=== PATIENT | female | born 1960 | race Caucasian/White ===

== ENCOUNTER → 2016-12-07 | Outpatient (CLI) | payer OTHER ==
[~2016-12-07] MED LIST: AZIT250T6 PO; BUDE10.2 IH; BUPR150T8 PO; CLON1TAB PO; CONTRAST GIVEN MC PRN; DEXT15CA18 PO; ESTR0.5T PO; HYDR50TA6 PO; IOHEXOL 300 MG/ML 100ML VIAL. IV ONE; LOSA25TA4 PO; METF500T9 PO; METH-38 PO; MIRT45TA PO; MONT10TA9 PO; NAPR500T PO; POTA20TA4 PO; PRED-220 PO; SIMV40TA3 PO; VENTOLIN HFA18 GM INH
--- NOTE | 2016-12-07 12:22 | KCIC ---
CT CHEST PQRS STATEMENT One or more of the following individualized dose reduction techniques were utilized for this study:1.Automated exposure control. 2.Adjustment of the mA and/or kV according to patient size. 3.Use of iterative reconstruction technique Indication: Reason For Study Reason: PERSISTENT COUGH, SOA / Spl. Instructions: 95cc Omni 300 / History: Increased use of asthma medication Comparison: None Technique: Multiple contiguous axial images were obtained through the chest after administration of iodinated contrast. Coronal and sagittal reformations were created. Findings: There is no thoracic adenopathy. There is a left breast mass that measures 2.9 x 1.7 centimeters. This appeared to be present on a previous mammogram from 2012. The heart size is normal. There is no pericardial effusion. The thoracic aorta is normal in caliber. There is no infiltrate. There is a 5 millimeter nodule in the right lower lobe. This is seen on series 6, image 33. There is no pleural effusion. No pneumothorax. No destructive osseus lesion. Limited subdiaphragmatic evaluation demonstrates cholelithiasis. Impression: - No evidence for pneumonia. - 5 millimeter nodule in the right lower lobe. Followup in 12 months is recommended. - Cholelithiasis. Electronically signed by: Girma Love (Dec 07, 2016 12:20:27)
== END | disposition home or self-care (01) ==
LOC: KCIC CT 10:38
PROVIDERS: ATTEND Family Medicine
DX: G47.33 Obstructive sleep apnea (adult) (pediatric) (principal); K80.20 Calculus of gallbladder without cholecystitis without obstruction; R91.1 Solitary pulmonary nodule; J45.909 Unspecified asthma, uncomplicated; N63 Unspecified lump in breast
CPT/HCPCS: 71260; 82565; Q9967

== ENCOUNTER → 2017-09-14 | Outpatient (CLI) | payer OTHER ==
[~2017-09-14] MED LIST changes: -CONTRAST GIVEN MC PRN; -IOHEXOL 300 MG/ML 100ML VIAL. IV ONE
--- NOTE | 2017-09-15 14:14 | RAD ---
DATE: 09/14/2017 EXAM: DIGITAL SCREEN BILAT W/CAD HISTORY: Routine COMPARISON: Examination 10/30/2011 and MLO and exaggerated CC views of both breasts to 01/03/2013. No more recent examination is available . This study was interpreted with the benefit of Computerized Aided Detection (CAD). FINDINGS: Breast Density: SCATTERED The breast parenchyma shows scattered fibroglandular densities. Breast parenchyma level B. The right breast is unremarkable. There are 2 masses in the left breast. A biopsy clip is adjacent to one of the masses. The smaller, oval, mass is unchanged in size. The rectangular mass immediately adjacent to the smaller mass is slightly larger. Given the very slow growth in this more rectangular mass a benign etiology is strongly favored over any malignant process. Targeted ultrasound however to this slowly growing mass is advised IMPRESSION: Slowly growing rectangular mass left breast. Targeted ultrasound advised BI-RADS CATEGORY: 0 INCOMPLETE: NEED ADDITIONAL IMAGING EVAULATION AND/OR PRIOR MAMMOGRAMS FOR COMPARISON RECOMMENDED FOLLOW-UP: ADD ADDITIONAL IMAGING PQRS compliance statement: Patient information was entered into a reminder system with a target due date soon for the next mammogram. Mammography is a sensitive method for finding small breast cancers, but it does not detect them all and is not a substitute for careful clinical examination. A negative mammogram does not negate a clinically suspicious finding and should not result in delay in biopsying a clinically suspicious abnormality. "Our facility is accredited by the [employer] Mammography Program."
== END | disposition home or self-care (01) ==
LOC: MAMMO 14:21
PROVIDERS: ATTEND Family Medicine
DX: N63.20 Unspecified lump in the left breast, unspecified quadrant (principal)
CPT/HCPCS: G0202; 77067

== ENCOUNTER → 2017-09-30 | Outpatient (CLI) | payer OTHER ==
[~2017-09-30] VITALS: Ht 170.2 cm; Wt 95.3 kg
[~2017-09-30] MED LIST changes: +ASCO500C PO; +NAPR-683 PO; -NAPR500T PO; +OMEP20CA9 PO
[2017-09-30 11:56] VITALS: BP 141/68
--- NOTE | 2017-10-01 08:31 | RAD ---
DATE: 09/30/2017 EXAM: DIGITAL DIAGNOSTIC LT, GUID NDL PLACE/ASPI/BX diagnostic left breast mammogram, ultrasound-guided left breast biopsy HISTORY: Left breast mass. COMPARISON: Left breast ultrasound 09/21/2017, screening mammogram 09/14/2017 This study was interpreted with the benefit of Computerized Aided Detection (CAD). Ultrasound-guided left breast biopsy: Procedure was explained to the patient including benefits and risks including but not limited to bleeding and infection and damage to adjacent structures. Patient wished to proceed and signed written informed consent. The patient was placed supine on the table. An appropriate site in the left breast was marked, prepped and draped in the usual sterile fashion. A timeout was performed according to standard institutional protocol. A small amount of lidocaine was used to anesthetize the overlying soft tissues. Under ultrasound guidance, 3 14-gauge core biopsy samples were obtained in the 10:00 position left breast mass. Samples were placed into formalin and sent to pathology. Subsequently under ultrasound guidance a small marker was placed into the left breast mass. Hemostasis was achieved. Left breast mammogram: Full field CC and MLO views of the left breast were obtained for confirmation of marker placement. There is a tiny metallic marker well centered in the left breast mass. Impression: 1. Ultrasound-guided biopsy of left breast mass, pathology pending. 2. Marker well centered within the mass. Mammography is a sensitive method for finding small breast cancers, but it does not detect them all and is not a substitute for careful clinical examination. A negative mammogram does not negate a clinically suspicious finding and should not result in delay in biopsying a clinically suspicious abnormality. "Our facility is accredited by the [employer] Mammography [employer]."
--- NOTE | 2017-10-01 17:16 | PATHOLOGY ---
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 See comment. COMMENT: Sections of the left breast mass needle biopsy reveal a vascular lesion. The vascular spaces lack endothelial cell atypia. However, the distinction between a benign vascular lesion (hemangioma) and low-grade angiosarcoma may be impossible when only sampled by core needle biopsy. Correlate clinically. (JPM:mml; 10/01/2017) REPORT ELECTRONICALLY SIGNED BY: Doroteo Mosley M.D. DATE/TIME: 10/01/2017 17:15 * * * * * * * * GROSS PATHOLOGY: Received in formalin labeled "Kevin Douglas, left breast," are multiple needle cores of yellow-mace fibrofatty tissue measuring 2.3 x 0.5 x 0.2 cm in aggregate dimensions. The tissue is submitted in its entirety in cassette A1 through A3. The cold ischemic time is 5 minutes. The total formalin fixation time is 8 hours and 45 minutes. (TSD; 09/30/2017) INITIAL CPT CODE(S): A; 37009 Professional services performed [place] [address] Technical services performed by [facility] at [address] [place] [address], [address], [place] [address] Ruvalcaba [facility] Radiology fax: [phone] SPECIMEN(S) RECEIVED: A.Left breast mass CLINICAL HISTORY: Left breast mass PATIENT: KEVIN DOUGLAS /AGE: 1009/13/1960 (Age: 57) PATIENT #: [id number] ALT CASE #: SPECIMEN COLLECTION DATE: 09/30/2017 SPECIMEN RECEIVED DATE: 09/30/2017 [facility] - [id number] [place] [address] - PHONE: [phone] * * * END OF REPORT * * *
== END | disposition home or self-care (01) ==
LOC: US 11:27
PROVIDERS: ATTEND Family Medicine
DX: N63.20 Unspecified lump in the left breast, unspecified quadrant (principal); J45.909 Unspecified asthma, uncomplicated; E11.9 Type 2 diabetes mellitus without complications; I50.9 Heart failure, unspecified
CPT/HCPCS: 19081; 76942; 88305; C1713; G0206; 77065